=== PATIENT | male | born 1990 | race Caucasian/White ===

== ENCOUNTER 2018-04-27 13:12 | Emergency (ER) | payer BC ==
[2018-04-27 13:34] VITALS: PULSE 80; RESP 18; TEMP 97.4
[2018-04-27] MEDS ORDERED: SODIUM CHLORIDE 0.9% 1,000 ML IV STA ×2 (14:24)
[2018-04-27] MEDS ORDERED: PANTOPRAZOLE 40 MG/10 ML VIAL IVP STA (14:24)
[2018-04-27] MEDS ORDERED: MORPHINE SULFATE 4 MG/ML SYRINGE IV STA (14:24)
[2018-04-27] MEDS ORDERED: SODIUM CHLORIDE 0.9% 500 ML 500 ML IV STA ×2 (14:24→16:16)
[2018-04-27] MEDS ORDERED: IOPAMIDOL-300 CONTRAST 30 ML VIAL (ORAL USE) PO PRN (14:24)
[2018-04-27] MEDS ORDERED: ONDANSETRON 4 MG/2 ML VIAL IVP STA (14:24)
--- NOTE | 2018-04-27 14:50 | ED ---
Abdominal Pain HPI - General Chief Complaint: Abdominal Pain Stated Complaint: Abd.pain Time Seen by Provider: 04/27/18 14:24 Source: patient, RN notes reviewed, old records reviewed Mode of arrival: wheelchair Limitations: no limitations - History of Present Illness Initial Comments: This is a 27-year-old male to the ER for evaluation patient does say for evaluation regards to nausea vomiting abdominal pain. Patient is a postop patient of recent gastric bypass. Patient Brenning of right lower quadrant bowel pain. No fevers, postop history and course is been within normal limits. Patient otherwise has no significant complaints - Related Data Home Medications Medication Instructions Recorded Confirmed Gabapentin [Neurontin] 300 mg PO TID 04/27/18 04/27/18 HYDROcodone/APAP 5-325MG [[place] 1 tab PO Q4HR PRN 04/27/18 04/27/18 5-325] Hyoscyamine Sulfate [Hyoscyamine 0.125 mg SL QID 04/27/18 04/27/18 Sulfate SL] Multivitamin [Multivitamins Adult 1 tab PO DAILY 04/27/18 04/27/18 Gummies] Ondansetron [Zofran ODT] 8 mg PO Q8HR PRN 04/27/18 04/27/18 Pantoprazole [Protonix] 40 mg PO DAILY 04/27/18 04/27/18 Previous Rx's Medication Instructions Recorded Tamsulosin [Flomax] 0.4 mg PO DAILY #7 cap 04/27/18 Allergies Allergy/AdvReac Type Severity Reaction Status Date / Time No Known Allergies Allergy Verified 04/27/18 15:39 Review of Systems ROS Statement: Those systems with pertinent positive or pertinent negative responses have been documented in the HPI. ROS Other: All systems not noted in ROS Statement are negative. Past Medical History Past Medical History: No Reported History History of Any Multi-Drug Resistant Organisms: None Reported Past Surgical History: Bariatric Surgery Past Psychological History: No Psychological Hx Reported Smoking Status: Never smoker Past Alcohol Use History: None Reported Past Drug Use History: None Reported General Exam Limitations: no limitations General appearance: alert, in no apparent distress, obese Head exam: Present: atraumatic, normocephalic, normal inspection Eye exam: Present: normal appearance, PERRL, EOMI. Absent: scleral icterus, conjunctival injection, periorbital swelling ENT exam: Present: normal exam, mucous membranes moist Neck exam: Present: normal inspection. Absent: tenderness, meningismus, lymphadenopathy Respiratory exam: Present: normal lung sounds bilaterally. Absent: respiratory distress, wheezes, rales, rhonchi, stridor Cardiovascular Exam: Present: regular rate, normal rhythm, normal heart sounds. Absent: systolic murmur, diastolic murmur, rubs, gallop, clicks GI/Abdominal exam: Present: soft, tenderness, guarding, normal bowel sounds. Absent: distended, rebound, rigid Extremities exam: Present: normal inspection, full ROM, normal capillary refill. Absent: tenderness, pedal edema, joint swelling, calf tenderness Back exam: Present: normal inspection Neurological exam: Present: alert, oriented X3, CN II-XII intact Psychiatric exam: Present: normal affect, normal mood Skin exam: Present: warm, dry, intact, normal color. Absent: rash Course Vital Signs 04/27/18 04/27/18 13:31 15:00 Temperature 97.4 F L Pulse Rate 80 Respiratory 18 18 Rate Blood Pressure 116/76 149/95 O2 Sat by Pulse 95 99 Oximetry - Reevaluation(s) Reevaluation #1: 04/27/18 14:50 Medical records reviewed Reevaluation #2: 04/27/18 16:[address] findings, no postop issue, incisions are clean dry and intact, patient has current adequate pain control, encouraged to increase oral water intake as best his ability Medical Decision Making - Medical Decision Making 27 male the ER for evaluation of right-sided flank pain positive right-sided kidney stones, no significant nausea vomiting or fevers. Patient can be discharged - Lab Data Result diagrams: 04/27/18 14:30 04/27/18 14:30 Lab Results 04/27/18 04/27/18 04/27/18 Range/Units 14:30 14:30 14:30 WBC 15.1 H (3.8-10.6) k/uL RBC 6.05 H (4.30-5.90) m/uL Hgb 17.3 (13.0-17.5) gm/dL Hct 50.0 (39.0-53.0) % MCV 82.6 (80.0-100.0) fL MCH 28.7 (25.0-35.0) pg MCHC 34.7 (31.0-37.0) g/dL RDW 13.4 (11.5-15.5) % Plt Count 376 (150-450) k/uL Neutrophils % 82 % Lymphocytes % 13 % Monocytes % 3 % Eosinophils % 1 % Basophils % 0 % Neutrophils # 12.4 H (1.3-7.7) k/uL Lymphocytes # 2.0 (1.0-4.8) k/uL Monocytes # 0.5 (0-1.0) k/uL Eosinophils # 0.1 (0-0.7) k/uL Basophils # 0.0 (0-0.2) k/uL Sodium 139 (137-145) mmol/L Potassium 4.0 (3.5-5.1) mmol/L Chloride 102 (98-107) mmol/L Carbon Dioxide 21 L (22-30) mmol/L Anion Gap 16 mmol/L BUN 15 (9-20) mg/dL Creatinine 0.97 (0.66-1.25) mg/dL Est GFR (CKD-EPI)AfAm >90 (>60 ml/min/1.73 sqM) Est GFR (CKD-EPI)NonAf >90 (>60 ml/min/1.73 sqM) Glucose 156 H (74-99) mg/dL Plasma Lactic Acid Zachary 1.5 (0.7-2.0) mmol/L Calcium 10.0 (8.4-10.2) mg/dL Total Bilirubin 1.5 H (0.2-1.3) mg/dL AST 40 (17-59) U/L ALT 99 H (21-72) U/L Alkaline Phosphatase 72 (38-126) U/L Total Protein 8.0 (6.3-8.2) g/dL Albumin 4.9 (3.5-5.0) g/dL Amylase 77 (30-110) U/L Lipase 413 H (23-300) U/L - Radiology Data Radiology results: report reviewed (CT abdomen pelvis is positive for right- sided kidney stone), image reviewed Disposition Clinical Impression: Right ureteral stone, Post-operative pain Disposition: HOME SELF-CARE Condition: Good Instructions: Kidney Stones (ED) Prescriptions: Tamsulosin [Flomax] 0.4 mg PO DAILY #7 cap Is patient prescribed a controlled substance at d/c from ED?: No Referrals: None,Stated [Primary Care Provider] - 1-2 days
[2018-04-27 14:56] LABS: Basophils % (A) 0 %; Eosinophils # (A) 0.1 k/uL (0-0.7); Eosinophils % (A) 1 %; HGB 17.3 gm/dL (13.0-17.5); Lymphocytes % (A) 13 %; MCH 28.7 pg (25.0-35.0); MCHC 34.7 g/dL (31.0-37.0); MCV 82.6 fL (80.0-100.0); Mean Platelet Volume 6.3; Monocytes # (A) 0.5 k/uL (0-1.0); Monocytes % (A) 3 %; Neutrophils # (A) 12.4 k/uL (1.3-7.7); Neutrophils % (A) 82 %; Platelet Count 376 k/uL (150-450); RBC 6.05 m/uL (4.30-5.90); RDW 13.4 % (11.5-15.5); WBC 15.1 k/uL (3.8-10.6)
[2018-04-27 14:59] LABS: ALT 99 U/L (21-72); AST 40 U/L (17-59); Albumin 4.9 g/dL (3.5-5.0); Alkaline Phosphatase 72 U/L (38-126); Amylase 77 U/L (30-110); Anion Gap 16 mmol/L; Blood Urea Nitrogen 15 mg/dL (9-20); Carbon Dioxide 21 mmol/L (22-30); Chloride 102 mmol/L (98-107); Glucose 156 mg/dL (74-99); Lipase 413 U/L (23-300); Sodium 139 mmol/L (137-145); Total Bilirubin 1.5 mg/dL (0.2-1.3)
[2018-04-27 15:28] VITALS: BP 149/95
--- NOTE | 2018-04-27 15:50 | CT ---
EXAMINATION TYPE: CT abdomen pelvis w con DATE OF EXAM: 04/27/2018 COMPARISON: None HISTORY: Right sided pain with nausea and vomiting CT DLP: 2045.3 mGycm Automated exposure control for dose reduction was used. TECHNIQUE: Helical acquisition of images from the lung bases through the pelvis have been completed. CONTRAST: Performed with Oral Contrast and with IV Contrast, patient injected with 100 mL of Isovue 300. FINDINGS: Within the subcutaneous fat along the anterior abdominal wall there is inflammatory change present, correlate for any history of prior surgery and possible scar formation versus cellulitis, di fficult to exclude a small anterior abdominal wall hernia at this level LUNG BASES: No significant abnormality is appreciated. AORTA: No significant abnormality is appreciated. LIVER/GB: Liver shows low attenuation. Gallbladder is unremarkable. PANCREAS: No significant abnormality is seen. SPLEEN: No significant abnormality is seen. ADRENALS: No significant abnormality is seen. KIDNEYS: No significant abnormality is seen. There is a calcification along the mid right ureter joseph uring 3 to 4 mm. Mild right-sided hydronephrosis. REPRODUCTIVE ORGANS: No significant abnormality is seen BOWEL: Postop changes are noted status post gastric sleeve. Nonspecific colonic wall thickening may be due to lack of distention, difficult to exclude a mucosal lesion. The appendix is normal.. FREE AIR: No Free Air visible. ASCITES: None visible. PELVIC ADENOPATHY: None visualized. RETROPERITONEAL ADENOPATHY: No Retroperitoneal Adenopathy visible. URINARY BLADDER: No significant abnormality is seen. OSSEOUS STRUCTURES: No significant abnormality is seen. IMPRESSION: OBSTRUCTIVE MID RIGHT URETERAL CALCULUS. FINDINGS WITHIN THE SUBCUTANEOUS FAT MAY BE DUE TO SCARRING, THERE MAY BE A SMALL ANTERIOR ABDOMINAL WALL HERNIA. POSTOP CHANGES. ADDITIONAL FINDINGS ABOVE.
[2018-04-27] MEDS ORDERED: KETOROLAC 30 MG/ML 1 ML VIAL IVP STA (16:15)
[2018-04-27] MEDS ORDERED: TAMSULOSIN 0.4 MG CAP.ER.24H PO STA (16:15)
[2018-04-27] MEDS ORDERED: HYDROmorphone 1 MG/ML 1 ML SYRINGE IVP STA (16:15)
== END 2018-04-27 17:06 | disposition home or self-care (01) ==
LOC: EC 13:12
DX: N20.2 Calculus of kidney with calculus of ureter (principal); G89.18 Other acute postprocedural pain; R10.31 Right lower quadrant pain; Z98.84 Bariatric surgery status; Z79.899 Other long term (current) drug therapy
CPT/HCPCS: 99285; 96374; 96375 ×4; 96361 ×2; 36415; 80053; 82150; 83605; 83690; 85025; 74177; J2270; J2405; J1885; J1170; C9113; Q9967

== ENCOUNTER 2022-04-12 19:19 | Emergency (ER) | payer BC, OTHER ==
--- NOTE | 2022-04-12 20:09 | XR ---
EXAMINATION TYPE: XR shoulder complete LT DATE OF EXAM: 04/12/2022 COMPARISON: NONE HISTORY: Shoulder pain TECHNIQUE: 3 views FINDINGS: There is no fracture nor dislocation. Glenohumeral joint is intact. No pathologic calcifica tions. Soft tissues appear normal. IMPRESSION: Negative left shoulder exam.
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
[2022-04-12 22:00] VITALS: BP 122/78; PULSE 78; RESP 18; TEMP 98.2
== END 2022-04-12 22:00 | disposition home or self-care (01) ==
LOC: EC 19:19
DX: S40.012A Contusion of left shoulder, initial encounter (principal); V18.4XXA Pedal cycle driver injured in noncollision transport accident in traffic accident, initial encounter; Y93.I9 Activity, other involving external motion
CPT/HCPCS: 99283

== ENCOUNTER 2024-01-28 14:18 | Inpatient (IN) | payer BC, OTHER ==
[2024-01-28] MEDS: KETOROLAC 15 MG/ML 1 ML VIAL IVP STA (14:57)
[2024-01-28] MEDS: SODIUM CHLORIDE 0.9% 1,000 ML IV ONE (14:59)
--- NOTE | 2024-01-28 15:03 | ED ---
Upper Extremity HPI - General Chief Complaint: Extremity Injury, Upper Stated Complaint: arm pain Time Seen by Provider: 01/28/24 14:33 Source: patient, RN notes reviewed Mode of arrival: ambulatory Limitations: no limitations - History of Present Illness Initial Comments: 33-year-old male presents emergency department with chief complaint of right elbow pain. Patient was seen at urgent care and sent here for evaluation. Patient states that he has a area of redness and increased warmth to his right elbow. Patient denies any trauma he states he may have been stung by bee but states the pain is not improving. He states feeling is getting worse. States his arm feels swollen. - Related Data Home Medications Medication Instructions Recorded Confirmed No Known Home Medications 01/28/24 01/28/24 Allergies Allergy/AdvReac Type Severity Reaction Status Date / Time No Known Allergies Allergy Verified 01/28/24 19:33 Review of Systems ROS Statement: Those systems with pertinent positive or pertinent negative responses have been documented in the HPI. ROS Other: All systems not noted in ROS Statement are negative. Past Medical History Past Medical History: No Reported History History of Any Multi-Drug Resistant Organisms: None Reported Past Surgical History: Bariatric Surgery Past Psychological History: No Psychological Hx Reported Smoking Status: Never smoker Past Alcohol Use History: None Reported Past Drug Use History: None Reported General Exam Limitations: no limitations General appearance: alert, in no apparent distress Head exam: Present: atraumatic, normocephalic, normal inspection Eye exam: Present: normal appearance, PERRL, EOMI. Absent: scleral icterus, conjunctival injection, periorbital swelling ENT exam: Present: normal exam, normal oropharynx, mucous membranes moist Neck exam: Present: normal inspection, full ROM. Absent: tenderness, meningismus, lymphadenopathy Respiratory exam: Present: normal lung sounds bilaterally. Absent: respiratory distress, wheezes, rales, rhonchi, stridor Cardiovascular Exam: Present: regular rate, normal rhythm, normal heart sounds. Absent: systolic murmur, diastolic murmur, rubs, gallop, clicks Extremities exam: Present: other (Right elbow there is swelling, increased warmth with palpation, there is a small area of erythema with tenderness to palpation neurovascular intact) Neurological exam: Present: alert Skin exam: Present: warm, dry, intact, normal color. Absent: rash Course Vital Signs 01/28/24 01/28/24 14:21 17:10 Temperature 98.0 F Pulse Rate 73 80 Respiratory 16 18 Rate Blood Pressure 142/88 134/76 O2 Sat by Pulse 97 97 Oximetry Medical Decision Making - Medical Decision Making Was pt. sent in by a medical professional or institution ([facility], [facility], urgent care, hospital, or senior living...) When possible be specific @ -Urgent care Did you speak to anyone other than the patient for history (EMS, parent, family, police, friend...)? What history was obtained from this source @ -No Did you review nursing and triage notes (agree or disagree)? Why? @ -I reviewed and agree with nursing and triage notes Were old charts reviewed (outside hosp., previous admission, EMS record, old EKG, old radiological studies, urgent care reports/EKG's, senior living records)? Report findings @ -No old charts were reviewed Differential Diagnosis (chest pain, altered mental status, abdominal pain women, abdominal pain men, vaginal bleeding, weakness, fever, dyspnea, syncope, headache, dizziness, GI bleed, back pain, seizure, CVA, palpatations, mental health, musculoskeletal)? @ -Tendinitis, bursitis, septic joint, septic arthritis EKG interpreted by me (3pts min.). @ -None X-rays interpreted by me (1pt min.). @ -xray right elbow shows no acute fracture, no fat pad sign's no foreign body CT interpreted by me (1pt min.). @ -None done U/S interpreted by me (1pt. min.). @ -None done What testing was considered but not performed or refused? (CT, X-rays, U/S, labs)? Why? @ -None What meds were considered but not given or refused? Why? @ -None Did you discuss the management of the patient with other professionals (pro fessionals i.e. [facility], [employer], lab, RT, psych nurse, social security benefits interviewer, automatic furnace operator, teacher, technology officer, case reviewer)? Give summary @ -Discussed the case with fely velasquez for Dr. Munoz send orthopedics r ecommends patient be admitted to medicine IV antibiotics and will consult. Case discussed with Dr. Bacon who admits patient Was smoking cessation discussed for >3mins.? @ -No Was critical care preformed (if so, how long)? @ -No Were there social determinants of health that impacted care today? How? (Homelessness, low income, unemployed, alcoholism, drug addiction, transportation, low edu. Level, literacy, decrease access to med. care, longterm, rehab)? @ -No Was there de-escalation of care discussed even if they declined (Discuss DNR or withdrawal of care, Hospice)? DNR status @ -No What co-morbidities impacted this encounter? (DM, HTN, Smoking, COPD, CAD, Cancer, CVA, ARF, Chemo, Hep., AIDS, mental health diagnosis, sleep apnea, morbid obesity)? @ -None Was patient admitted / discharged? Hospital course, mention meds given and route, prescriptions, significant lab abnormalities, going to OR and other pertinent info. @ -Admitted patient presented for right elbow pain, unable to move secondary to pain patient does have some increased erythema, warmth with palpation patient does have mild leukocytosis patient started on Unasyn and vancomycin. Patient is admitted with consults to ID and orthopedics. Undiagnosed new problem with uncertain prognosis? @ -No Drug Therapy requiring intensive monitoring for toxicity (Heparin, Nitro, Insulin, Cardizem)? @ -No Were any procedures done? @ -No Diagnosis/symptom? @ -Septic joint right elbow Acute, or Chronic, or Acute on Chronic? @ -Acute Uncomplicated (without systemic symptoms) or Complicated (systemic symptoms)? @ -Complicated Side effects of treatment? @ -No Exacerbation, Progression, or Severe Exacerbation? @ -No Poses a threat to life or bodily function? How? (Chest pain, USA, MD, pneumonia, PE, COPD, DKA, ARF, appy, cholecystitis, CVA, Diverticulitis, Homicidal, Suicidal, threat to staff... and all critical care pts) @ -Yes surgical risk - Lab Data Result diagrams: 01/28/24 14:42 01/28/24 14:42 Lab Results 01/28/24 01/28/24 Range/Units 14:42 14:42 WBC 12.1 H (3.8-10.6) k/uL RBC 5.37 (4.30-5.90) m/uL Hgb 11.5 L (13.0-17.5) gm/dL Hct 36.9 L (39.0-53.0) % MCV 68.6 L (80.0-100.0) fL MCH 21.5 L (25.0-35.0) pg MCHC 31.3 (31.0-37.0) g/dL RDW 16.1 H (11.5-15.5) % Plt Count 449 (150-450) k/uL MPV 6.4 Neutrophils % 63 % Lymphocytes % 24 % Monocytes % 9 % Eosinophils % 1 % Basophils % 1 % Neutrophils # 7.6 (1.3-7.7) k/uL Lymphocytes # 2.9 (1.0-4.8) k/uL Monocytes # 1.1 H (0-1.0) k/uL Eosinophils # 0.1 (0-0.7) k/uL Basophils # 0.1 (0-0.2) k/uL Hypochromasia Marked Anisocytosis Slight Microcytosis Marked ESR 27 H (0-15) mm/Hr Sodium 140 (137-145) mmol/L Potassium 4.1 (3.5-5.1) mmol/L Chloride 109 H (98-107) mmol/L Carbon Dioxide 23 (22-30) mmol/L Anion Gap 8 mmol/L BUN 12 (9-20) mg/dL Creatinine 0.87 (0.66-1.25) mg/dL Est GFR (CKD-EPI)AfAm >90 (>60 ml/min/1.73 sqM) Est GFR (CKD-EPI)NonAf >90 (>60 ml/min/1.73 sqM) Glucose 93 (74-99) mg/dL Uric Acid 7.5 (3.5-8.5) mg/dL Calcium 9.1 (8.4-10.2) mg/dL Total Bilirubin 0.4 (0.2-1.3) mg/dL AST 27 (17-59) U/L ALT 19 (4-49) U/L Alkaline Phosphatase 66 (38-126) U/L C-Reactive Protein <0.5 (<1.0) mg/dL Total Protein 6.7 (6.3-8.2) g/dL Albumin 4.1 (3.5-5.0) g/dL Disposition Clinical Impression: Septic joint of right elbow Disposition: ADMITTED IP TO THIS [facility] Condition: Fair Time of Disposition: 16:09
[2024-01-28 15:14] LABS: Anisocytosis Slight; Basophils # (A) 0.1 k/uL (0-0.2); Basophils % (A) 1 %; Eosinophils # (A) 0.1 k/uL (0-0.7); Eosinophils % (A) 1 %; HCT 36.9 % (39.0-53.0); HGB 11.5 gm/dL (13.0-17.5); Hypochromasia Marked; Lymphocytes # (A) 2.9 k/uL (1.0-4.8); Lymphocytes % (A) 24 %; MCH 21.5 pg (25.0-35.0); MCHC 31.3 g/dL (31.0-37.0); MCV 68.6 fL (80.0-100.0); Mean Platelet Volume 6.4; Microcytosis Marked; Monocytes # (A) 1.1 k/uL (0-1.0); Monocytes % (A) 9 %; Neutrophils # (A) 7.6 k/uL (1.3-7.7); Neutrophils % (A) 63 %; Platelet Count 449 k/uL (150-450); RBC 5.37 m/uL (4.30-5.90); RDW 16.1 % (11.5-15.5); WBC 12.1 k/uL (3.8-10.6)
--- NOTE | 2024-01-28 15:27 | XR ---
EXAMINATION TYPE: XR elbow complete RT DATE OF EXAM: 01/28/2024 CLINICAL HISTORY: pain TECHNIQUE: Frontal, lateral and oblique images of the right elbow are obtained. COMPARISON: None. FINDINGS: There is no acute fracture/dislocation evident of the elbow. No abnormal fat pad signs ar e seen. The overlying soft tissue appears unremarkable. IMPRESSION: There is no acute fracture or dislocation of the elbow. ICD 10 NO FRACTURE, INITIAL EVALUATION
[2024-01-28 15:32] LABS: ALT 19 U/L (4-49); AST 27 U/L (17-59); African American GFR (CKD) >90 (>60 ml/min/1.73 sqM); Albumin 4.1 g/dL (3.5-5.0); Alkaline Phosphatase 66 U/L (38-126); Anion Gap 8 mmol/L; Blood Urea Nitrogen 12 mg/dL (9-20); C Reactive Protein <0.5 mg/dL (<1.0); Calcium 9.1 mg/dL (8.4-10.2); Carbon Dioxide 23 mmol/L (22-30); Chloride 109 mmol/L (98-107); Glucose 93 mg/dL (74-99); Non-African American GFR(CKD) >90 (>60 ml/min/1.73 sqM); Potassium 4.1 mmol/L (3.5-5.1); Sodium 140 mmol/L (137-145); Total Bilirubin 0.4 mg/dL (0.2-1.3); Total Protein 6.7 g/dL (6.3-8.2); Uric Acid 7.5 mg/dL (3.5-8.5)
[2024-01-28] MEDS ORDERED: VANCOMYCIN IV PER PHARMACY 1 EACH MISC MISCELLANE PRN (16:08)
[2024-01-28] MEDS ORDERED: ACETAMINOPHEN TAB 325 MG TAB PO PRN (16:09)
[2024-01-28] MEDS ORDERED: NALOXONE 0.4 MG/ML 1 ML VIAL IV PRN (16:09)
[2024-01-28] MEDS ORDERED: HYDROmorphone 0.5 MG/0.5 ML SYRINGE IVP PRN (16:09)
[2024-01-28] MEDS: HYDROmorphone 0.5 MG/0.5 ML SYRINGE IVP STA (16:24)
[2024-01-28] MEDS: HYDROcodone/APAP 5-325MG 1 EACH TAB PO PRN (18:04)
[2024-01-28] MEDS: AMPICILLIN-SULBACTAM 3 GM in SODIUM CHLORIDE 0.9% 100 ML IVPB SCH ×2 (18:04→23:13)
[2024-01-28 19:20] LABS: Erythrocyte Sedimentation Rate 27 mm/Hr (0-15)
[2024-01-28] MEDS: LACTATED RINGERS 1,000 ML IV ONE (19:29)
[2024-01-28] MEDS: ONDANSETRON 4 MG/2 ML VIAL IVP STA ×2 (19:48→22:48)
[2024-01-28] MEDS: DEXAMETHASONE SOD PHOSPHATE 4 MG/ML 1 ML VIAL IVP ONE (19:50)
--- NOTE | 2024-01-28 19:50 | P.CNOR ---
History of Present Illness - [facility] Consult date: 01/28/24 Consult reason: joint pain History of present illness: 33 yo male presents with c/o right elbow pain that is severe and has been getting worse over the past day. He states three days ago he was working on a car and after did not have any issues, of note he did scrape himself with a screwdriver on his leg during this, and then the next day his elbow was sore. He states then over the next two days the elbow became more and more painful and severely swollen and now today he cannot move the elbow and it is extremely painful to the touch and with any motion. He presented to the ED for evaluation due to the severe pain and continued issues. He states a low grade fever over the past day. He states no chills. He states no injury to the elbow otherwise or in the past. He denies any other symptoms other than pain that now is radiating down his arm in to his wrist. He states pain over the lateral aspect of the elbow as well as anterior and medial. He has little to no pain over the distal lateral humeral condyle. He has Allodynia over the skin of the lateral elbow over the radial head. He also has severe pain with supination and pronation and refuses to flex or extend the elbow and is holding it in a semiflexed position. He states no sob/cp/n/v. Review of Systems 16 points review of systems completed and as stated in HPI, all other systems reviewed are negative. Constitutional: Reports as per HPI Past Medical History Past Medical History: No Reported History History of Any Multi-Drug Resistant Organisms: None Reported Past Surgical History: Bariatric Surgery Additional Past Surgical History / Comment(s): gastric sleeve 2017 Past Psychological History: No Psychological Hx Reported Smoking Status: Never smoker Past Alcohol Use History: None Reported Past Drug Use History: None Reported Medications and Allergies Home Medications Medication Instructions Recorded Confirmed Type No Known Home Medications 01/28/24 01/28/24 History Allergies Allergy/AdvReac Type Severity Reaction Status Date / Time No Known Allergies Allergy Verified 01/28/24 19:33 Physical Examination Osteopathic Statement: *. No significant issues noted on an osteopathic structural exam other than those noted in the History and Physical/Consult. Physical Exam: -Patient is alert and oriented 3 appears well-nourished well-hydrated is in no acute distress. They do not appear septic. -There is TTP Diffusely about the right elbow. Patient has allodynia he is guarding he refuses to move the elbow secondary to severe pain. -Erythema and warmth about the right elbow over the lateral aspect. -Upper extremities show [5] out of 5 strength in all major muscle groups. Except for right elbow and wrists testing as the patient is guarding cannot tolerate due to exquisite pain -Lower extremities with [5] out of 5 strength in all major muscle groups [##EXCEPT] -There is [FROM] that is [painless] of the b/l UE and LE in all major joints. Except for right elbow which is held in approximately 105 of flexion. The patient refuses to move the elbow secondary to severe pain. -They are intact to light touch sensation in C5 to T1 and L2 to S1 nerve distribution. -DTR [2]/4 all upper and lower extremities -Patient has palpable distal pulses all 4 ext -Compartments are soft and compressible. -Patient shows a negative Nato's [-Neg Hoffmans b/l] [-Neg Clonus b/l] [-Neg babinski b/l] Cranial nerves II through XII are grossly intact. - Elbow right Location of pain: anterior, medial, lateral Pain modifiers: with motion, with activity, at rest Stiffness: unable to fully bend, unable to fully straighten, unable to fully supinate, unable to fully pronate Swelling: of the elbow Appearance: swelling, erythema, warmth Tenderness with palpation: radiocapitellar, ulnotrochlear, ulnar collateral ligament, radial collateral ligament Crepitus with motion: No Strength: flexion: 3/5 Strength: extension: 3/5 Strength: supination: 3/5 Strength: pronation: 3/5 Strength: cleaning technician: 3/5 Tests: tennis elbow tests: negative, golfer's elbow tests: negative, medial ligament instability tests: negative, lateral ligament instability tests: negative, posterolateral ligament instability tests: negative, Tinel's sign median nerve: negative, Tinel's sign ulnar nerve: negative Reflexes: biceps: grade 2, brachioradialis: grade 2, triceps: grade 2 Results Xray multivew of the right elbow is reviewed. This demonstrates swelling about the right elbow with posterior fat pad sign as well as small anterior fat pad sign. There are no fractures noted. UH and RC joints are congruent. No lesions noted. Alignment normal. - Labs Labs: Abnormal Lab Results - Last 24 Hours (Table) 01/28/24 01/28/24 Range/Units 14:42 14:42 WBC 12.1 H (3.8-10.6) k/uL Hgb 11.5 L (13.0-17.5) gm/dL Hct 36.9 L (39.0-53.0) % MCV 68.6 L (80.0-100.0) fL MCH 21.5 L (25.0-35.0) pg RDW 16.1 H (11.5-15.5) % Monocytes # 1.1 H (0-1.0) k/uL ESR 27 H (0-15) mm/Hr Chloride 109 H (98-107) mmol/L H & H 01/28/24 Range/Units 14:42 Hgb 11.5 L (13.0-17.5) gm/dL Hct 36.9 L (39.0-53.0) % Result Diagrams: 01/28/24 14:42 01/28/24 14:42 - Diagnostic results Elbow x-ray: report reviewed, image reviewed Assessment and Plan (1) Right elbow pain Current Visit: Yes Status: Acute Code(s): M25.521 - PAIN IN RIGHT ELBOW SNOMED Code(s): 11573623 (2) Septic joint of right elbow Current Visit: Yes Status: Acute Code(s): M00.9 - PYOGENIC ARTHRITIS, UNSPECIFIED SNOMED Code(s): 323743555 Plan: -NPO -Pts elbow was aspirated in his room under sterile conditions and aspirate sent to lab for analysis. The aspirate obtained was abot 8 cc of purulent synovial fluid with some bloody material as well. -Had a long discussion with patient and family due to clinical presentation, labs, and purulent aspirate I do recommend urgent/emergent washout of this elbow due to high suspicion of septic arthritis of the elbow. They understand and are agreeable to this. We discussed risks and benefits as outlined below. Pt will be taken to the OR tonight for right elbow incision and drainage with cultures. ID is consulted for abx and possible PICC line. Orthopedic Surgery Risk Review Orestes Ramos is a 33 yo male presenting for evaluation of severe right elbow pain swelling, redness and inability to move elbow with no apparent injury. It was my pleasure to have seen and examined Orestes Ramos . In our visit today we have had a chance to go over subjective complaints, physical examination findings and treatments including the natural course history without intervention and various interventional options. His imaging demonstrates no fracture or dislocation of the right elbow with anterior and posterior fat pads. On physical exam, Oerstes Ramos demonstrates pain with motion of right elbow, which is NV intact at this time. I have explained to the patient that this fracture needs stabilization. Based on the patients imaging, physical exam, and the rapid progression and disabling nature of her symptoms, at this time I recommend surgery in the form or a: INCISION AND DRAINAGE OF RIGHT ELBOW JOINT I discussed the risk and benefits of this procedure at length with Orestes Ramos . Questions were invited and answered, and the patient wishes to proceed as outlined below. Currently, I am recommendin. INCISION AND DRAINAGE OF RIGHT ELBOW JOINT 2. Review of surgical risks and benefits as well as an educational packet on the proposed surgical procedure. Risks: All surgical procedures come with inherent risks, including those related to positioning, anesthesia, intraoperative findings, and postoperative complicat ions. It is important to understand that surgery does not come with any guarantee of a successful outcome as complications and adverse events are always possible. The patient was given a handout discussing the surgical procedure and risks associated with the intervention, both of which were discussed with the patient. These risks include but are not limited to the following: - Experiencing same, different or even worse symptoms compared to before surgery. - Requiring further surgery or other forms of treatment presently or at some time in the future . - On an extreme but fortunately relatively rare basis severe complication such as blindness, stroke, heart attack, temporary and/or permanent nerve injury, paralysis, coma, or may occur, sometimes without known explanation. - Surgical complications may include but are not limited to risk of infection, fluid accumulation in the surgical dissection site, including a seroma or hematoma, that requires additional surgery, wound drainage, bleeding, new numbness or weakness, vision changes/loss, spinal fluid leakage, non-healing and/or infected incision, headaches, difficulty or inability to swallow, hoarseness, hemopneumothorax, pneumothorax, injury to nerves, spinal cord, blood vessels, lymphatics or other vital organs (i.e., bowel injury, injury to the great vessels); heterotopic bone formation; complications related to the hardware such as screws, rods, including misplaced hardware, device failure, hardware fracture/breakage, or hardware loosening; retained surgical instrumentations or devices and the need for further surgery. - Medical risks of the planned surgery include but are not limited to generalized Infections to the whole body or local areas outside of the surgical site (sepsis), heart attack, bleeding, anaphylaxis, meningitis, seizure, epilepsy, hearing loss, burn huang, laceration of the head or other areas of the body, bruising, hypersensitivity of the skin, bladder over distension; allergic reaction; shoulder injury related to positioning; fat, blood and air clots to other areas of the body like heart, lungs, brain; failure of internal organs such as lungs, kidneys, liver and excessive bleeding. If blood transfusions are necessary, note that transfusions may cause intolerance reactions such as anaphylaxis or other complex reactions. Despite best efforts, the results of surgery might not heal in terms of bone, soft tissues such as skin, fascia, ligaments, and joints. [facility] has multiple operating rooms with single and overlapping rooms running daily. They currently function under the required guidelines as produced by the Senate Finance Committee with regards to the overlapping rooms and will continue to comply with changes to this policy as they occur. The requirements include and are complied with as follows: (1) the critical portions of the overlapping rooms will not occur at the same time, (2) the attending cleo melendezian will be physically present during the critical portions of the procedure and immediately available during the entire case, and (3) a back-up attending is designated should the primary attending not be immediately available. The patient has had a chance to review all the listed information, has been given print outs detailing this information, and has had all his/her questions answered to their satisfaction. It was my pleasure to have seen and examined Orestes Ramos . In our visit today we have had a chance to go over my understanding of our patient's current condition, the natural course history without intervention and various interventional options. Questions were invited and answered, and the patient wishes to proceed as outlined above. I have seen and examined the patient for 25 minutes and we have spent more than 50% of the time in repeat and detailed counseling about the patient's condition, its natural course history with out and as much as can be predicted with surgery and re-review of various surgical treatment options. In conclusion, Orestes Ramos requested we proceed with the above suggested surgery and are willing to accept risks and limitations of the suggested surgery as nature of the disease process and our best attempts at treatment for the condition. Thank you again for allowing us to be part of your patient's care. Please don't hesitate to contact me if you have any further questions. Signed and authenticated by: Carlos Ma [facility] [address]
[2024-01-28] MEDS ORDERED: LIDOCAINE 1% INJ 10MG/ML (20 ML MDV) ONE (19:58)
[2024-01-28] MEDS ORDERED: MIDAZOLAM 2 MG/2 ML VIAL ONE (19:58)
[2024-01-28] MEDS ORDERED: PROPOFOL 10 MG/ML 20 ML VIAL IV ONE (19:58)
[2024-01-28] MEDS ORDERED: fentaNYL (PF) 50 MCG/ML 2 ML AMP ONE (19:58)
--- NOTE | 2024-01-28 21:13 | P.OP ---
Date of Procedure: 01/28/24 Preoperative Diagnosis: Current Active Problems Right elbow pain (Acute) Septic joint of right elbow (Acute) Postoperative Diagnosis: Current Active Problems Right elbow pain (Acute) Septic joint of right elbow (Acute) Procedure(s) Performed: 1. INCISION AND DRAINAGE OF RIGHT ELBOW SEPTIC ARTHRITIS Implants: NONE Anesthesia: MAC Surgeon: Carlos Juan Estimated Blood Loss (ml): 10 IV fluids (ml): 500 Urine output (ml): 0 Pathology: other (X2 CX RIGHT ELBOW FLUID, RIGHT ELBOW TISSUE) Condition: stable Disposition: PACU Indications for Procedure: Orestes Ramos is a 33 yo male presenting for evaluation of severe right elbow pain swelling, redness and inability to move elbow with no apparent injury. It was my pleasure to have seen and examined Orestes Ramos . In our visit today we have had a chance to go over subjective complaints, physical examination findings and treatments including the natural course history without intervention and various interventional options. His imaging demonstrates no fracture or dislocation of the right elbow with anterior and posterior fat pads. On physical exam, Orestes Ramos demonstrates pain with motion of right elbow, which is NV intact at this time. I have explained to the patient that this fracture needs stabilization. Based on the patients imaging, physical exam, and the rapid progression and disabling nature of her symptoms, at this time I recommend surgery in the form or a: INCISION AND DRAINAGE OF RIGHT ELBOW JOINT I discussed the risk and benefits of this procedure at length with Orestes Ramos . Questions were invited and answered, and the patient wishes to proceed as outlined below. Currently, I am recommendin. EMERGENT INCISION AND DRAINAGE OF RIGHT ELBOW JOINT Description of Procedure: The patient was seen and examined in the preoperative area. All preoperative protocols were followed. Informed consent was obtained risks and benefits of the procedure were discussed at length. Risks including bleeding infection damage to the surrounding tissue and risk of reoperation were discussed with the patient. Risk of anesthesia up to and including was a discussed with the patient. These are outlined in the risk reviewed. They were willing to accept these risks and all of the risks of surgery. The patient was gIVEN A DOSE OF VANCOMYCIN FROM THE FLOOR FROM THE EMERGENCY DEPARTMENT. The patient was seen and evaluated by the anesthesia team who deemed them fit for surgery. The site was marked, the patient was willing to proceed with the procedure. The patient was transferred to the operative suite by the Department of anesthesia. There were then drifted off to sleep by the department of anesthesia and LMA anesthesia was used. Once adequate anesthesia had been obtained the patient was carefully transferred to the operative bed. All bony prominences were padded accordingly. SCDs were placed on the nonoperative lower extremities. Arms were well padded. Right arm was exposed placed on a arm board well-padded. Preoperative briefing was done with the operative team and everyone was ready for the procedure to start. The patients Right arm was then prepped and draped in the normal sterile fashion. Timeout was then performed and all parties in agreement with the procedure to be performed. Lateral [place] approach incision was then marked on the patient's right elbow and skin incision was made with a 15 blade and blunt dissection taken down to the muscular fascia which was split ECRB ECRL And anconeus were identified. The patient's arm was kept in pronation throughout dissection to protect his nerve. These were then elevated. The joint capsule was then identified and cleaned. Joint capsule was then incised with inside knife and immediate gross purulence was noted. Cultures were taken of this fluid. There is also phlegmon noted and this was sent for culture and pathology. We then irrigated the joint out with NSS, IRRICEPT, Betadine and then finally NSS while taking the joint through a range of motion during irrigation to allow for complete irrigation of the joint. Once this was completed the joint was taken through a range of motion and no further purulence was noted or expressed. The joint capsule was then closed with 30 and 2-0 Vicryl. The fascia deep was then closed with 3-0 Vicryl. Superficial subcu was closed with 3-0 Vicryl and the skin was closed with 3-0 nylon in a horizontal mattress fashion. This approximated very well. The wound was then cleaned and dressed sterilely with Adaptic 4 x 4's and Kerlix this was then overwrapped with an Mundo wrap. The patient was then transferred back to their hospital bed. There were awakened by department of anesthesia having tolerated the procedure very well with no complications. The patient was then transported to the postoperative care unit in stable condition.
--- NOTE | 2024-01-28 22:37 | P.CONS ---
History of Present Illness - Reason for Consult Consult date: 01/28/24 Septic joint Requesting physician: John Dejesus - Chief Complaint Right elbow pain and swelling x 3 days - History of Present Illness Patient is a 33-year-old male with no significant past medical history did have a history of bariatric surgery in 2017 patient mention has been working on all core over the last few days and subsequently noticed to having increasing pain and swelling to the right elbow area started as a discomfort for the last 2 days that has progressively getting worse becoming more swollen and has very hard for him to lift up his arm patient subsequent noticed to have some redness and warmth to the area that has concerned him for the patient went to the local urgent care for med patient was directed to the ER patient denies high-grade fever did have some chills has been complaining of pain to the right elbow area describing it to be sharp almost 10 out of 10 in severity without any radiation worse with movement of the arm and elbow area patient did not have any open wound or any drainage with the symptoms the patient has been evaluated on presentation to the hospital the patient was afebrile no fever have recorded subsequently patient was nontachycardic hypotensive or hypoxic he did have a white count of 12.1 with a left shift kidney function normal electrolytes normal liver enzymes normal patient did have a elbow x-ray no acute fracture or dislocation patient was started on vancomycin and Unasyn infectious disease was consulted for further management of antibiotic therapy Review of Systems Positive point and negatives has been mentioned in the HPI, complete review of systems was performed and all other systems are negative Past Medical History Past Medical History: No Reported History History of Any Multi-Drug Resistant Organisms: None Reported Past Surgical History: Bariatric Surgery Past Psychological History: No Psychological Hx Reported Smoking Status: Never smoker Past Alcohol Use History: None Reported Past Drug Use History: None Reported Medications and Allergies Home Medications Medication Instructions Recorded Confirmed Type No Known Home Medications 01/28/24 01/28/24 History Allergies Allergy/AdvReac Type Severity Reaction Status Date / Time No Known Allergies Allergy Verified 01/28/24 19:33 Physical Exam Vitals: Vital Signs Temp Pulse Resp BP Pulse Ox 01/28/24 14:21 98.0 F 73 16 142/88 97 Intake and Output 01/28/24 01/28/24 01/28/24 06:59 14:59 22:59 Other: Weight 115.666 kg GENERAL DESCRIPTION: Middle-aged male lying in bed, no distress. No tachypnea or accessory muscle of respiration use. HEENT: Shows Pallor , no scleral icterus. Oral mucous membrane is dry. No pharyngeal erythema or thrush NECK: Trachea central, no thyromegaly. LUNGS: Unlabored breathing. Clear to auscultation anteriorly. No wheeze or crackle. HEART: S1, S2, regular rate and rhythm. No loud murmur ABDOMEN: Soft, no tenderness , guarding or rigidity, no organomegaly EXTREMITIES: Right ankle did have significant swelling, redness tenderness and warmth SKIN: No rash, no masses palpable. NEUROLOGICAL: The patient is awake, alert, oriented x3, mood and affect normal. Results CBC & Chem 7: 01/28/24 14:42 01/28/24 14:42 Labs: Abnormal Lab Results - Last 24 Hours (Table) 01/28/24 01/28/24 Range/Units 14:42 14:42 WBC 12.1 H (3.8-10.6) k/uL Hgb 11.5 L (13.0-17.5) gm/dL Hct 36.9 L (39.0-53.0) % MCV 68.6 L (80.0-100.0) fL MCH 21.5 L (25.0-35.0) pg RDW 16.1 H (11.5-15.5) % Monocytes # 1.1 H (0-1.0) k/uL Chloride 109 H (98-107) mmol/L Assessment and Plan (1) Olecranon bursitis, right elbow Current Visit: Yes Status: Acute Code(s): M70.21 - OLECRANON BURSITIS, RIGHT ELBOW SNOMED Code(s): 434379392053263 (2) Leukocytosis Current Visit: Yes Status: Acute Code(s): D72.829 - ELEVATED WHITE BLOOD CELL COUNT, UNSPECIFIED SNOMED Code(s): 362251143 Plan: 1patient presented to hospital with extensive right elbow as well as upper extremity swelling pain and tenderness concerning for likely septic olecranon bursitis with secondary cellulitis of the upper extremity likely from gram- positive skin annmarie gram-negative infection less likely bilateral 2-await Ortho evaluation for possible I&D and deep culture 3-vancomycin pharmacy to dose target trough of 15 while watching kidney function and Vanco trough closely and adjust the dose of Unasyn to 3 g every 6 hours pending culture Question concern answered We will follow on clinical condition and cultures to further adjust medication if needed Thank you for this consultation we will follow the patient along with you Dictation was produced using [employer] dictation software. please excuse any grammatical, word or spelling errors. Time with Patient: Greater than 30
[2024-01-28] MEDS: VANCOMYCIN 1,750 MG in SODIUM CHLORIDE 0.9% 500 ML 500 ML IVPB SCH (22:46)
[2024-01-28] MEDS: DEXAMETHASONE SOD PHOSPHATE 4 MG/ML 1 ML VIAL IM STA (22:48)
[2024-01-28] MEDS: DEXAMETHASONE SOD PHOSPHATE 4 MG/ML 1 ML VIAL IVP STA (22:48)
[2024-01-29] MEDS: KETOROLAC 15 MG/ML 1 ML VIAL IVP PRN (01:53)
[2024-01-29 05:23] LABS: African American GFR (CKD) >90 (>60 ml/min/1.73 sqM); Non-African American GFR(CKD) >90 (>60 ml/min/1.73 sqM)
[2024-01-29 08:37] LABS: Anion Gap 7 mmol/L; Blood Urea Nitrogen 10 mg/dL (9-20); Carbon Dioxide 21 mmol/L (22-30); Chloride 109 mmol/L (98-107); Glucose 138 mg/dL (74-99); Potassium 4.7 mmol/L (3.5-5.1); Sodium 137 mmol/L (137-145)
[2024-01-29 09:08] LABS: Anisocytosis Slight; Basophils % (A) 0 %; Eosinophils % (A) 0 %; HCT 36.5 % (39.0-53.0); HGB 11.1 gm/dL (13.0-17.5); Hypochromasia Marked; Lymphocytes # (A) 1.2 k/uL (1.0-4.8); Lymphocytes % (A) 10 %; MCH 21.4 pg (25.0-35.0); MCHC 30.5 g/dL (31.0-37.0); MCV 70.3 fL (80.0-100.0); Mean Platelet Volume 6.9; Microcytosis Moderate; Monocytes # (A) 0.4 k/uL (0-1.0); Monocytes % (A) 3 %; Neutrophils # (A) 10.3 k/uL (1.3-7.7); Neutrophils % (A) 86 %; Platelet Count 435 k/uL (150-450); RBC 5.19 m/uL (4.30-5.90); RDW 16.1 % (11.5-15.5)
--- NOTE | 2024-01-29 10:56 | P.PN ---
Subjective Progress Note Date: 01/29/24 Principal diagnosis: Right elbow pain Septic joint of right elbow Patient seen and examined this morning. Patient is resting comfortably in bed with right elbow elevated on pillows. Surgical incision to right elbow, dressing is CDI. He does report that his pain is managed on current regimen. He states he does have increased pain with movement, although he reports improvement of pain since the procedure. Patient may begin range of motion exercises as tolerated. Continue on current IV antibiotic treatment, awaiting cultures and ID recommendations. Overall, patient states he is feeling better. He has been afebrile, denies any chills, nausea/vomiting, or shortness of breath. Objective - Vital Signs Vital signs: Vital Signs Temp 98.0 F 01/29/24 02:33 Pulse 94 01/29/24 02:49 Resp 16 01/29/24 02:33 BP 124/79 01/29/24 02:49 Pulse Ox 98 01/29/24 02:49 FiO2 Intake & Output 01/28/24 01/29/24 01/29/24 18:59 06:59 18:59 Intake Total 550 Output Total 5 Balance 545 Weight 115.666 kg Intake: IV 550 Output: Estimated Blood Loss 5 Other: # Voids 1 - Exam Inspection: Surgical incision to the right elbow, dressing is CDI. Sensation: Sensation is equal, symmetric, bilaterally intact throughout the upper and lower extremities Palpation: Tender to palpation over the right elbow around incision site. Range of motion: Patient does have limited range of motion to the right elbow due to pain and stiffness from surgical procedure. Patient is able to flex and extend his right wrist and fingers. Motor: 5/5 in all major motor groups in the left upper and lower extremities, 4- /5 right upper extremity. Neurovascular: Radial pulse intact, 2+ bilaterally. Cap refill under 3 seconds in digits upper extremities. - Labs CBC & Chem 7: 01/29/24 04:28 01/29/24 04:25 Labs: Abnormal Lab Results - Last 24 Hours (Table) 01/28/24 01/28/24 Range/Units 14:42 14:42 WBC 12.1 H (3.8-10.6) k/uL Hgb 11.5 L (13.0-17.5) gm/dL Hct 36.9 L (39.0-53.0) % MCV 68.6 L (80.0-100.0) fL MCH 21.5 L (25.0-35.0) pg RDW 16.1 H (11.5-15.5) % Monocytes # 1.1 H (0-1.0) k/uL ESR 27 H (0-15) mm/Hr Chloride 109 H (98-107) mmol/L Assessment and Plan Assessment: Post-Op day 1: Incision and drainage of right elbow Plan: -Appreciate showroom consultant and team management. -Activity: Keep elbow elevated on pillows, may perform ROM exercises as tolerated -Pain control: Adequate at this time, [place] and Toradol -Meds: reviewed -GI ppx: senna -DVT PPX: Heparin -Hygiene: Maintain dressing clean and dry. -Encourage IS 10x/hr -Dispo: Clinically pending *I reviewed and discussed this case with my attending Dr. Juan, whom has reviewed this chart and films and is in agreement with assessment and plan of care as outlined above. I have personally seen and examined the patient, performed the documentation and the assessment and plan as written. Number of minutes spent on the visit: 20m.
--- NOTE | 2024-01-29 16:04 | P.PN ---
Subjective Progress Note Date: 01/29/24 Principal diagnosis: Reason for follow up his right elbow septic arthritis Patient is a 33-year-old male with no significant past medical history did have a history of bariatric surgery in 2017 patient presenting to the hospital with extensive right elbow and arm swelling with concern for olecranon bursitis in this patient who status post incision and drainage of the right elbow septic arthritis by Ortho on 01/28/2024. On today's evaluation that is 01/29/2024, patient did have a low-grade fever 100.7 last night however the patient has been afebrile this morning, patient is breathing comfortably and is currently on room air, patient denies having any significant cough no chest pain shortness of breath, patient denies nausea vomiting or diarrhea and no abdominal pain, pain to right elbow is currently controlled Patient white count is 12.0, creatinine 0.68 cultures currently pending Objective - Vital Signs Vital signs: Vital Signs Temp 98.4 F 01/29/24 07:58 Pulse 77 01/29/24 07:58 Resp 16 01/29/24 07:58 BP 122/80 01/29/24 07:58 Pulse Ox 96 01/29/24 07:58 FiO2 Intake & Output 01/28/24 01/29/24 01/29/24 18:59 06:59 18:59 Intake Total 550 Output Total 5 Balance 545 Weight 115.666 kg Intake: IV 550 Output: Estimated Blood Loss 5 Other: Voiding Method Toilet # Voids 1 - Exam GENERAL DESCRIPTION: Middle-age male lying in bed in no distress RESPIRATORY SYSTEM: Unlabored breathing , decreased breath sounds at bases HEART: S1 S2 regular rate and rhythm , ABDOMEN: Soft , no tenderness EXTREMITIES: Right elbow is currently dressed - Labs CBC & Chem 7: 01/29/24 04:28 01/29/24 04:25 Labs: Abnormal Lab Results - Last 24 Hours (Table) 01/28/24 01/28/24 01/29/24 Range/Units 14:42 14:42 04:25 WBC 12.1 H (3.8-10.6) k/uL Hgb 11.5 L (13.0-17.5) gm/dL Hct 36.9 L (39.0-53.0) % MCV 68.6 L (80.0-100.0) fL MCH 21.5 L (25.0-35.0) pg MCHC (31.0-37.0) g/dL RDW 16.1 H (11.5-15.5) % Neutrophils # (1.3-7.7) k/uL Monocytes # 1.1 H (0-1.0) k/uL ESR 27 H (0-15) mm/Hr Chloride 109 H 109 H (98-107) mmol/L Carbon Dioxide 21 L (22-30) mmol/L Glucose 138 H (74-99) mg/dL 01/29/24 Range/Units 04:28 WBC 12.0 H (3.8-10.6) k/uL Hgb 11.1 L (13.0-17.5) gm/dL Hct 36.5 L (39.0-53.0) % MCV 70.3 L (80.0-100.0) fL MCH 21.4 L (25.0-35.0) pg MCHC 30.5 L (31.0-37.0) g/dL RDW 16.1 H (11.5-15.5) % Neutrophils # 10.3 H (1.3-7.7) k/uL Monocytes # (0-1.0) k/uL ESR (0-15) mm/Hr Chloride (98-107) mmol/L Carbon Dioxide (22-30) mmol/L Glucose (74-99) mg/dL Assessment and Plan (1) Olecranon bursitis, right elbow Current Visit: Yes Status: Acute Code(s): M70.21 - OLECRANON BURSITIS, RIGHT ELBOW SNOMED Code(s): 802452016761470 (2) Leukocytosis Current Visit: Yes Status: Acute Code(s): D72.829 - ELEVATED WHITE BLOOD CELL COUNT, UNSPECIFIED SNOMED Code(s): 809552495 Plan: 1patient presented to hospital with extensive right elbow as well as upper extremity swelling pain and tenderness concerning for likely septic olecranon bursitis with secondary cellulitis of the upper extremity likely from gram- positive skin annmarie gram-negative infection less likely but not entirely excluded 2-patient is s/p Ortho evaluation and did have I&D of the right elbow joint 3-patient to continue with vancomycin pharmacy to dose along with Unasyn to 3 g every 6 hours pending culture Will likely need a PICC line and outpatient IV antibiotics Dictation was produced using [employer] dictation software. please excuse any grammatical, word or spelling errors. Time with Patient: Less than 30
[2024-01-29] MEDS: SENNOSIDES-DOCUSATE SODIUM 1 EACH TAB PO SCH (20:26)
[2024-01-29] MEDS: HEPARIN SODIUM,PORCINE 5,000 UNIT/ML 1 ML VIAL SQ SCH (20:27)
[2024-01-30 08:56] LABS: African American GFR (CKD) >90 (>60 ml/min/1.73 sqM); Non-African American GFR(CKD) >90 (>60 ml/min/1.73 sqM)
[2024-01-30] MEDS: VANCOMYCIN TROUGH DUE 1 EACH MISC MISCELLANE ONE (10:01)
--- NOTE | 2024-01-30 10:12 | P.HPIM ---
History of Present Illness H&P Date: 01/29/24 Chief Complaint: elbow pain Orestes Ramos is a 33 yo M with no significant PMH who presented to the ED with worsening R elbow pain over the past day. He feels this came on gradually after he was working on a car putting his weight on his elbows on the ground. He states then over the next two days the elbow became more painful to the point it hurt to move and was tender to touch. Pt states a low grade fever over the past day. He denies previous trauma to the elbow. He denies any other symptoms other than pain that now is radiating down his arm in to his wrist. He describes pain throughout the elbow and radiating into the wrist. On presentation WBC 12.1, afebrile. Review of Systems All systems: negative Constitutional: Denies chills, Denies fever Eyes: denies blurred vision, denies pain Ears, nose, mouth and throat: Denies headache, Denies sore throat Cardiovascular: Denies chest pain, Denies shortness of breath Respiratory: Denies cough Gastrointestinal: Denies abdominal pain, Denies diarrhea, Denies nausea, Denies vomiting Musculoskeletal: Reports as per HPI, Reports arm numbness/tingling, Denies myalgias Integumentary: Denies pruritus, Denies rash Neurological: Denies numbness, Denies weakness Psychiatric: Denies anxiety, Denies depression Endocrine: Denies fatigue, Denies weight change Past Medical History Past Medical History: No Reported History History of Any Multi-Drug Resistant Organisms: None Reported Past Surgical History: Bariatric Surgery Additional Past Surgical History / Comment(s): gastric sleeve 2017 Past Psychological History: No Psychological Hx Reported Smoking Status: Never smoker Past Alcohol Use History: None Reported Past Drug Use History: None Reported Medications and Allergies Home Medications Medication Instructions Recorded Confirmed Type No Known Home Medications 01/28/24 01/28/24 History Allergies Allergy/AdvReac Type Severity Reaction Status Date / Time No Known Allergies Allergy Verified 01/28/24 19:33 Physical Exam Vitals: Vital Signs Temp Pulse Resp BP Pulse Ox 01/30/24 07:00 98.5 F 70 16 129/83 98 01/30/24 01:56 98.7 F 71 16 133/89 95 01/29/24 19:57 98.8 F 78 16 147/89 95 01/29/24 14:21 98.4 F 77 16 131/79 96 Intake and Output 01/29/24 01/30/24 01/30/24 22:59 06:59 14:59 Other: # Voids 1 Gen: well developed, well nourished NAD HEENT: NC/AT, mmm Neck: supple, no JVD or thyromegaly CV: RRR, no murmur Lungs; CTAB Abd: soft, nontender, non distended Neuro: AAOx3, no focal deficit Skin: R elbow wrapped in gauze Results CBC & Chem 7: 01/29/24 04:28 01/30/24 07:54 Labs: Microbiology - Last 24 Hours (Table) 01/28/24 16:37 Blood Culture - Preliminary Blood 01/28/24 16:37 Blood Culture - Preliminary Blood Assessment and Plan Plan: Septic arthritis of R elbow. Admit, blood cultures, start unasyn and vancomycin. Ortho consulted and pt s/p washout. ID consultation
--- NOTE | 2024-01-30 13:12 | P.PN ---
Subjective Progress Note Date: 01/30/24 Principal diagnosis: Right elbow pain Septic joint of right elbow Patient seen and examined this morning. Patient is resting comfortably in bed with right elbow elevated on pillows. Surgical incision to right elbow, dressing is CDI. He does report that his pain is managed on current regimen. He states he has been attempting to flex and extend his elbow as tolerated. Overall, patient states he is feeling even better than yesterday. He has been afebrile, denies any chills, nausea/vomiting, or shortness of breath. Objective - Vital Signs Vital signs: Vital Signs Temp 98.5 F 01/30/24 07:00 Pulse 70 01/30/24 07:00 Resp 16 01/30/24 07:00 BP 129/83 01/30/24 07:00 Pulse Ox 98 01/30/24 07:00 FiO2 Intake & Output 01/29/24 01/30/24 01/30/24 18:59 06:59 18:59 Intake Total 0 Balance 0 Intake: Oral 0 Other: Voiding Method Toilet # Voids 1 1 - Exam Inspection: Surgical incision to the right elbow, dressing is CDI. Sensation: Sensation is equal, symmetric, bilaterally intact throughout the upper and lower extremities Palpation: Tender to palpation over the right elbow around incision site. Range of motion: Patient does have limited range of motion to the right elbow due to pain and stiffness from surgical procedure. Patient is able to flex and extend his right wrist and fingers. Motor: 5/5 in all major motor groups in the left upper and lower extremities, 4- /5 right upper extremity. Neurovascular: Radial pulse intact, 2+ bilaterally. Cap refill under 3 seconds in digits upper extremities. - Labs CBC & Chem 7: 01/29/24 04:28 01/30/24 07:54 Labs: Microbiology - Last 24 Hours (Table) 01/28/24 16:37 Blood Culture - Preliminary Blood 01/28/24 16:37 Blood Culture - Preliminary Blood Assessment and Plan Assessment: Post-Op day 2: Incision and drainage of right elbow Plan: -Appreciate medical cost consultant and team management. -Continue with IV abx therapy per ID recommendations, awaiting cultures -Activity: Keep elbow elevated on pillows, may perform ROM exercises as tolerated -Pain control: Adequate at this time, [place] and Toradol -Meds: reviewed -GI ppx: senna -DVT PPX: Heparin -Hygiene: Maintain dressing clean and dry. -Encourage IS 10x/hr -Dispo: Clinically pending *I reviewed and discussed this case with my attending Dr. Juan, whom has reviewed this chart and films and is in agreement with assessment and plan of care as outlined above. I have personally seen and examined the patient, performed the documentation and the assessment and plan as written. Number of minutes spent on the visit: 20m.
--- NOTE | 2024-01-30 13:52 | P.PN ---
Subjective Progress Note Date: 01/30/24 Principal diagnosis: Reason for follow up his right elbow septic arthritis Patient is a 33-year-old male with no significant past medical history did have a history of bariatric surgery in 2017 patient presenting to the hospital with extensive right elbow and arm swelling with concern for olecranon bursitis in this patient who status post incision and drainage of the right elbow septic arthritis by Ortho on 01/28/2024. On today's evaluation that is 01/30/2024, Patient is afebrile this morning patient denies having any chest pain shortness of breath or cough, the patient is breathing comfortably and currently on room air, patient denies any abdominal pain no diarrhea no nausea no vomiting patient pain to the right elbow is slightly decreased in intensity. Patient did have a creatinine 0.6 Vanco trough is 16 cultures currently pending Objective - Vital Signs Vital signs: Vital Signs Temp 98.5 F 01/30/24 07:00 Pulse 70 01/30/24 07:00 Resp 16 01/30/24 07:00 BP 129/83 01/30/24 07:00 Pulse Ox 98 01/30/24 07:00 FiO2 Intake & Output 01/29/24 01/30/24 01/30/24 18:59 06:59 18:59 Intake Total 0 Balance 0 Intake: Oral 0 Other: Voiding Method Toilet # Voids 1 1 - Exam GENERAL DESCRIPTION: Middle-age male lying in bed in no distress RESPIRATORY SYSTEM: Unlabored breathing , decreased breath sounds at bases HEART: S1 S2 regular rate and rhythm , ABDOMEN: Soft , no tenderness EXTREMITIES: Right elbow is currently dressed - Labs CBC & Chem 7: 01/29/24 04:28 01/30/24 07:54 Labs: Microbiology - Last 24 Hours (Table) 01/28/24 16:37 Blood Culture - Preliminary Blood 01/28/24 16:37 Blood Culture - Preliminary Blood Assessment and Plan (1) Olecranon bursitis, right elbow Current Visit: Yes Status: Acute Code(s): M70.21 - OLECRANON BURSITIS, RIGHT ELBOW SNOMED Code(s): 797355346612168 (2) Leukocytosis Current Visit: Yes Status: Acute Code(s): D72.829 - ELEVATED WHITE BLOOD CELL COUNT, UNSPECIFIED SNOMED Code(s): 140255345 Plan: 1patient presented to hospital with extensive right elbow as well as upper extremity swelling pain and tenderness concerning for likely septic olecranon bursitis with secondary cellulitis of the upper extremity likely from gram- positive skin annmarie gram-negative infection less likely but not entirely excluded 2-patient is s/p Ortho evaluation and did have I&D of the right elbow joint with cultures currently pending 3-patient to continue with vancomycin pharmacy to dose along with Unasyn to 3 g every 6 hours while waiting for the culture to finalize Question concern answered Dictation was produced using [employer] dictation software. please excuse any grammatical, word or spelling errors. Time with Patient: Less than 30
--- NOTE | 2024-01-30 15:26 | P.PN ---
Subjective Progress Note Date: 01/30/24 Interval History: Patient was seen and examined today. Denied any chills overnight. Right elbow pain is controlled. Remained afebrile. Vital stable. REVIEW OF SYSTEMS: CONSTITUTIONAL: No fever, no malaise,. CARDIOVASCULAR: No chest pain, no palpitations, no syncope. PULMONARY: No shortness of breath, no cough, GASTROINTESTINAL: No diarrhea, no nausea, no vomiting, no abdominal pain. NEUROLOGICAL: No headaches, no weakness, PHYSICAL EXAMINATION: GENERAL: The patient is alert and oriented x3, not in any acute distress. Well developed, well nourished. HEENT: Pupils are round and equally reacting to light. EOMI. No scleral icterus. No conjunctival pallor. Normocephalic, atraumatic. No pharyngeal erythema. No thyromegaly. CARDIOVASCULAR: S1 and S2 present. No murmurs, rubs, or gallops. PULMONARY: Chest is clear to auscultation, no wheezing or crackles. ABDOMEN: Soft, nontender, nondistended, normoactive bowel sounds. No palpable organomegaly. MUSCULOSKELETAL: No joint swelling or deformity. Right elbow dressing intact. Peripheral pulses intact, no cyanosis. No tightness or tenderness forearm or upper arm. EXTREMITIES: No cyanosis, clubbing, or pedal edema. NEUROLOGICAL: Gross neurological examination did not reveal any focal deficits. SKIN: No rashes. Assessment and plan Right elbow olecranon bursitis: Leukocytosis: Presented with extensive right elbow and upper extremity swelling pain and tenderness, concerning for septic olecranon bursitis with secondary cellulitis. Status post orthopedic evaluation and I&D of right elbow jointsurgical cultures pending. Blood cultures negative so far. Infectious disease on boardcurrently on vancomycin and Unasyn Pain control. DVT prophylaxis: Subcutaneous heparin. Dictation was produced using [employer] software. please excuse any grammatical, word or spelling errors. Objective - Vital Signs Vital signs: Vital Signs Temp 97.6 F 01/30/24 15:00 Pulse 64 01/30/24 15:00 Resp 17 01/30/24 15:00 BP 114/74 01/30/24 15:00 Pulse Ox 97 01/30/24 15:00 FiO2 Intake & Output 01/29/24 01/30/24 01/30/24 18:59 06:59 18:59 Intake Total 0 118 Balance 0 118 Intake: Oral 0 118 Other: Voiding Method Toilet # Voids 1 1 - Labs CBC & Chem 7: 01/29/24 04:28 01/30/24 07:54 Labs: Microbiology - Last 24 Hours (Table) 01/28/24 16:37 Blood Culture - Preliminary Blood 01/28/24 16:37 Blood Culture - Preliminary Blood
[2024-01-31 03:43] LABS: Anisocytosis Slight; Basophils # (A) 0.1 k/uL (0-0.2); Basophils % (A) 1 %; Eosinophils # (A) 0.2 k/uL (0-0.7); Eosinophils % (A) 2 %; HCT 34.8 % (39.0-53.0); HGB 10.9 gm/dL (13.0-17.5); Hypochromasia Marked; Lymphocytes # (A) 2.8 k/uL (1.0-4.8); Lymphocytes % (A) 31 %; MCH 21.5 pg (25.0-35.0); MCHC 31.4 g/dL (31.0-37.0); MCV 68.6 fL (80.0-100.0); Mean Platelet Volume 6.4; Microcytosis Marked; Monocytes # (A) 0.7 k/uL (0-1.0); Monocytes % (A) 7 %; Neutrophils # (A) 5.1 k/uL (1.3-7.7); Neutrophils % (A) 56 %; Platelet Count 378 k/uL (150-450); RBC 5.07 m/uL (4.30-5.90); RDW 16.5 % (11.5-15.5)
[2024-01-31 03:54] LABS: African American GFR (CKD) >90 (>60 ml/min/1.73 sqM); Non-African American GFR(CKD) >90 (>60 ml/min/1.73 sqM)
[2024-01-31 03:59] LABS: African American GFR (CKD) >90 (>60 ml/min/1.73 sqM); Anion Gap 7 mmol/L; Blood Urea Nitrogen 9 mg/dL (9-20); C Reactive Protein <0.5 mg/dL (<1.0); Calcium 8.7 mg/dL (8.4-10.2); Carbon Dioxide 23 mmol/L (22-30); Chloride 109 mmol/L (98-107); Glucose 88 mg/dL (74-99); Non-African American GFR(CKD) >90 (>60 ml/min/1.73 sqM); Potassium 3.5 mmol/L (3.5-5.1); Sodium 139 mmol/L (137-145)
--- NOTE | 2024-01-31 08:28 | P.PN ---
Progress Note - Text Progress Note Date: 01/31/24 Current Active Problems Septic joint of right elbow (Acute) Right elbow pain (Acute) Leukocytosis (Acute) Chart reviewed. ID and Med notes reviewed. Appreciate mgt. Ortho eval pending today. Labs and micro reviewed - awaiting surgical cultures still. Awaiting final synoval cultures. VSS Vital Signs - 24 hr 01/30/24 01/30/24 01/31/24 15:00 20:11 01:23 Temperature 97.6 F 98.3 F 97.6 F Pulse Rate [ 64 60 61 Pulse Oximetery ] Respiratory 17 17 16 Rate Blood Pressure 114/74 140/85 132/77 [Left Arm] Blood Pressure [Right Arm] O2 Sat by Pulse 97 96 97 Oximetry 01/31/24 08:00 Temperature 97.4 F L Pulse Rate [ 58 L Pulse Oximetery ] Respiratory 16 Rate Blood Pressure [Left Arm] Blood Pressure 142/78 [Right Arm] O2 Sat by Pulse 95 Oximetry Laboratory Results - Last 24 Hours 01/30/24 01/30/24 01/31/24 07:54 07:54 02:58 WBC 9.0 RBC 5.07 Hgb 10.9 L Hct 34.8 L MCV 68.6 L MCH 21.5 L MCHC 31.4 RDW 16.5 H Plt Count 378 MPV 6.4 Neutrophils % 56 Lymphocytes % 31 Monocytes % 7 Eosinophils % 2 Basophils % 1 Neutrophils # 5.1 Lymphocytes # 2.8 Monocytes # 0.7 Eosinophils # 0.2 Basophils # 0.1 Hypochromasia Marked Anisocytosis Slight Microcytosis Marked Sodium Potassium Chloride Carbon Dioxide Anion Gap BUN Creatinine 0.66 Est GFR (CKD-EPI)AfAm >90 Est GFR (CKD-EPI)NonAf >90 Glucose Calcium C-Reactive Protein Vancomycin Trough 16.0 01/31/24 01/31/24 02:58 02:58 WBC RBC Hgb Hct MCV MCH MCHC RDW Plt Count MPV Neutrophils % Lymphocytes % Monocytes % Eosinophils % Basophils % Neutrophils # Lymphocytes # Monocytes # Eosinophils # Basophils # Hypochromasia Anisocytosis Microcytosis Sodium 139 Potassium 3.5 Chloride 109 H Carbon Dioxide 23 Anion Gap 7 BUN 9 Creatinine 0.66 0.67 Est GFR (CKD-EPI)AfAm >90 >90 Est GFR (CKD-EPI)NonAf >90 >90 Glucose 88 Calcium 8.7 C-Reactive Protein <0.5 Vancomycin Trough
--- NOTE | 2024-01-31 09:45 | P.PN ---
Subjective Progress Note Date: 01/31/24 Principal diagnosis: Right elbow pain Septic joint of right elbow Patient seen and examined this morning. Patient is resting comfortably in bed with right elbow elevated on pillows. Surgical incision to right elbow, edges are well approximated with sutures intact. No active drainage. New dressing applied. He does report that his pain is managed on current regimen. Encourage patient to up and out of bed. Instructed patient that he may ambulate in hallways. Continue with light ROM exercises of the right elbow as tolerated. Synovial fluid and blood cultures are in preliminary status with no growth, awaiting final results. He has been afebrile, denies any chills, nausea/v omiting, or shortness of breath. Objective - Vital Signs Vital signs: Vital Signs Temp 97.4 F L 01/31/24 08:00 Pulse 58 L 01/31/24 08:00 Resp 16 01/31/24 08:00 BP 142/78 01/31/24 08:00 Pulse Ox 95 01/31/24 08:00 FiO2 Intake & Output 01/30/24 01/31/24 01/31/24 18:59 06:59 18:59 Intake Total 236 118 Balance 236 118 Intake: Oral 236 118 Other: Voiding Method Toilet # Voids 1 - Exam Inspection: Surgical incision to the right elbow, edges are well-approximated with sutures intact. Mild bruising noted of around incision site. New dressing has been applied. Sensation: Sensation is equal, symmetric, bilaterally intact throughout the upper and lower extremities Palpation: Tender to palpation over the right elbow around incision site. Range of motion: Patient does have limited range of motion to the right elbow due to pain and stiffness from surgical procedure. Patient is able to flex and extend his right wrist and fingers. Motor: 5/5 in all major motor groups in the left upper and lower extremities, 4/5 right upper extremity. Neurovascular: Radial pulse intact, 2+ bilaterally. Cap refill under 3 seconds in digits upper extremities. - Labs CBC & Chem 7: 01/31/24 02:58 01/31/24 02:58 Labs: Abnormal Lab Results - Last 24 Hours (Table) 01/31/24 01/31/24 Range/Units 02:58 02:58 Hgb 10.9 L (13.0-17.5) gm/dL Hct 34.8 L (39.0-53.0) % MCV 68.6 L (80.0-100.0) fL MCH 21.5 L (25.0-35.0) pg RDW 16.5 H (11.5-15.5) % Chloride 109 H (98-107) mmol/L Microbiology - Last 24 Hours (Table) 01/28/24 16:37 Blood Culture - Preliminary Blood 01/28/24 16:37 Blood Culture - Preliminary Blood 01/28/24 20:34 Anaerobic Culture - Preliminary Synovial Fluid 01/28/24 20:34 Anaerobic Culture - Preliminary Synovial Fluid Assessment and Plan Assessment: Post-Op day 3: Incision and drainage of right elbow Plan: -Appreciate budget consultant and team management. -Continue with IV abx therapy per ID recommendations, awaiting final cultures -Activity: Keep elbow elevated on pillows, may perform ROM exercises as tolerated. Encourage patient to be up in chair and may ambulate in hallways. -Pain control: Adequate at this time, [place] and Toradol -Meds: reviewed -GI ppx: senna -DVT PPX: Heparin -Hygiene: Maintain dressing clean and dry. -Encourage IS 10x/hr -Dispo: Clinically pending *I reviewed and discussed this case with my attending Dr. Juan, whom has reviewed this chart and films and is in agreement with assessment and plan of care as outlined above. I have personally seen and examined the patient, performed the documentation and the assessment and plan as written. Number of minutes spent on the visit: 20m.
[2024-01-31 10:19] LABS: Erythrocyte Sedimentation Rate 23 mm/Hr (0-15)
--- NOTE | 2024-01-31 15:27 | P.PN ---
Subjective Progress Note Date: 01/31/24 Interval History: 01/30--Patient seen and examined today. Denied any issues overnight. Right elbow pain is controlled. Patient had dressing change by orthopedic today. Surgical cultures showed no growth so far. Leukocytosis resolved. Hemoglobin stable. Platelet count normal. ESR trending down 2320. BMP unremarkable. CRP less than 0.5. REVIEW OF SYSTEMS: CONSTITUTIONAL: No fever, no malaise,. CARDIOVASCULAR: No chest pain, no palpitations, no syncope. PULMONARY: No shortness of breath, no cough, GASTROINTESTINAL: No diarrhea, no nausea, no vomiting, no abdominal pain. NEUROLOGICAL: No headaches, no weakness, PHYSICAL EXAMINATION: GENERAL: The patient is alert and oriented x3, not in any acute distress. Well developed, well nourished. HEENT: Pupils are round and equally reacting to light. EOMI. No scleral icterus. No conjunctival pallor. Normocephalic, atraumatic. No pharyngeal erythema. No thyromegaly. CARDIOVASCULAR: S1 and S2 present. No murmurs, rubs, or gallops. PULMONARY: Chest is clear to auscultation, no wheezing or crackles. ABDOMEN: Soft, nontender, nondistended, normoactive bowel sounds. No palpable organomegaly. MUSCULOSKELETAL: No joint swelling or deformity. Right elbow dressing intact. Peripheral pulses intact, no cyanosis. No tightness or tenderness forearm or upper arm. EXTREMITIES: No cyanosis, clubbing, or pedal edema. NEUROLOGICAL: Gross neurological examination did not reveal any focal deficits. SKIN: No rashes. Assessment and plan Right elbow olecranon bursitis: Leukocytosis: Presented with extensive right elbow and upper extremity swelling pain and tenderness, concerning for septic olecranon bursitis with secondary cellulitis. Status post orthopedic evaluation and I&D of right elbow jointsurgical cultures pending. Blood cultures negative so far. Infectious disease on boardcurrently on vancomycin and Unasyn Pain control. DVT prophylaxis: Subcutaneous heparin. Dictation was produced using [employer] dictation software. please excuse any grammatical, word or spelling errors. Objective - Vital Signs Vital signs: Vital Signs Temp 98.4 F 01/31/24 14:00 Pulse 77 01/31/24 14:00 Resp 16 01/31/24 14:00 BP 136/89 01/31/24 14:00 Pulse Ox 96 01/31/24 14:00 FiO2 Intake & Output 01/30/24 01/31/24 01/31/24 18:59 06:59 18:59 Intake Total 236 118 Balance 236 118 Intake: Oral 236 118 Other: Voiding Method Toilet # Voids 1 6 # Bowel Movements 1 - Labs CBC & Chem 7: 01/31/24 02:58 01/31/24 02:58 Labs: Abnormal Lab Results - Last 24 Hours (Table) 01/31/24 01/31/24 Range/Units 02:58 02:58 Hgb 10.9 L (13.0-17.5) gm/dL Hct 34.8 L (39.0-53.0) % MCV 68.6 L (80.0-100.0) fL MCH 21.5 L (25.0-35.0) pg RDW 16.5 H (11.5-15.5) % ESR 23 H (0-15) mm/Hr Chloride 109 H (98-107) mmol/L Microbiology - Last 24 Hours (Table) 01/28/24 16:37 Blood Culture - Preliminary Blood 01/28/24 16:37 Blood Culture - Preliminary Blood 01/28/24 20:34 Anaerobic Culture - Preliminary Synovial Fluid 01/28/24 20:34 Anaerobic Culture - Preliminary Synovial Fluid
--- NOTE | 2024-01-31 21:33 | P.PN ---
Subjective Progress Note Date: 01/31/24 Principal diagnosis: Reason for follow up his right elbow septic arthritis Patient is a 33-year-old male with no significant past medical history did have a history of bariatric surgery in 2017 patient presenting to the hospital with extensive right elbow and arm swelling with concern for olecranon bursitis in this patient who status post incision and drainage of the right elbow septic arthritis by Ortho on 01/28/2024. On today's evaluation that is 01/31/2024,the patient denies any fever or any chills, patient is breathing comfortably on room air, the patient denies chest pain shortness of breath and no significant cough, patient denies abdominal pain, no nausea vomiting or diarrhea. Patient pain to the right elbow has decreased in intensity. Patient white count normalized to 9.0, creatinine 0.67 blood and local culture still pending Objective - Vital Signs Vital signs: Vital Signs Temp 97.4 F L 01/31/24 08:00 Pulse 58 L 01/31/24 08:00 Resp 16 01/31/24 08:00 BP 142/78 01/31/24 08:00 Pulse Ox 95 01/31/24 08:00 FiO2 Intake & Output 01/30/24 01/31/24 01/31/24 18:59 06:59 18:59 Intake Total 236 118 Balance 236 118 Intake: Oral 236 118 Other: Voiding Method Toilet # Voids 1 - Exam GENERAL DESCRIPTION: Middle-age male lying in bed in no distress RESPIRATORY SYSTEM: Unlabored breathing , decreased breath sounds at bases HEART: S1 S2 regular rate and rhythm , ABDOMEN: Soft , no tenderness EXTREMITIES: Right elbow is currently dressed - Labs CBC & Chem 7: 01/31/24 02:58 01/31/24 02:58 Labs: Abnormal Lab Results - Last 24 Hours (Table) 01/31/24 01/31/24 Range/Units 02:58 02:58 Hgb 10.9 L (13.0-17.5) gm/dL Hct 34.8 L (39.0-53.0) % MCV 68.6 L (80.0-100.0) fL MCH 21.5 L (25.0-35.0) pg RDW 16.5 H (11.5-15.5) % Chloride 109 H (98-107) mmol/L Microbiology - Last 24 Hours (Table) 01/28/24 16:37 Blood Culture - Preliminary Blood 01/28/24 16:37 Blood Culture - Preliminary Blood 01/28/24 20:34 Anaerobic Culture - Preliminary Synovial Fluid 01/28/24 20:34 Anaerobic Culture - Preliminary Synovial Fluid Assessment and Plan (1) Leukocytosis Current Visit: Yes Status: Acute Code(s): D72.829 - ELEVATED WHITE BLOOD CELL COUNT, UNSPECIFIED SNOMED Code(s): 451355330 (2) Septic joint of right elbow Current Visit: Yes Status: Acute Code(s): M00.9 - PYOGENIC ARTHRITIS, UNSPECIFIED SNOMED Code(s): 238170178 Plan: 1patient presented to hospital with extensive right elbow as well as upper extremity swelling pain and tenderness concerning for likely septic olecranon bursitis with secondary cellulitis of the upper extremity likely from gram- positive skin annmarie gram-negative infection less likely but not entirely exclud ed 2-patient is s/p Ortho evaluation and did have I&D of the right elbow joint with cultures currently pending 3-patient to continue with vancomycin pharmacy to dose along with Unasyn to 3 g every 6 hours while waiting for the culture to finalize to determine discharge antibiotics will get a PICC line for tomorrow morning 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 please excuse any grammatical, word or spelling errors. Time with Patient: Less than 30
[2024-02-01 08:01] LABS: Prothrombin Time 11.3 sec (10.0-12.5)
[2024-02-01 08:10] LABS: African American GFR (CKD) >90 (>60 ml/min/1.73 sqM); Non-African American GFR(CKD) >90 (>60 ml/min/1.73 sqM)
[2024-02-01] MEDS: VANCOMYCIN TROUGH DUE 1 EACH MISC MISCELLANE ONE (09:04)
--- NOTE | 2024-02-01 09:25 | P.PN ---
Subjective Progress Note Date: 02/01/24 Principal diagnosis: Right elbow pain Septic joint of right elbow Patient seen and examined this morning. Patient is resting comfortably in bed. He does report some discomfort to his left elbow, although it is managed on current regimen. Discussed with patient that we are still waiting for results of cultures. Continue to encourage patient to perform light range of motion exercises of the left elbow. No further recommendations at this time. Patient is cleared from orthopedic standpoint for discharge when medically stable. Objective - Vital Signs Vital signs: Vital Signs Temp 98.3 F 02/01/24 08:00 Pulse 71 02/01/24 08:00 Resp 16 02/01/24 08:00 BP 128/87 02/01/24 08:00 Pulse Ox 98 02/01/24 08:00 FiO2 Intake & Output 01/31/24 02/01/24 02/01/24 18:59 06:59 18:59 Intake Total 236 Balance 236 Intake: Oral 236 Other: # Voids 6 2 # Bowel Movements 1 - Exam Inspection: Surgical incision to the right elbow, dressing is CDI. Sensation: Sensation is equal, symmetric, bilaterally intact throughout the upper and lower extremities Palpation: Tender to palpation over the right elbow around incision site. Range of motion: Patient does have limited range of motion to the right elbow due to pain and stiffness from surgical procedure. Patient is able to flex and extend his right wrist and fingers. Motor: 5/5 in all major motor groups in the left upper and lower extremities, 4/5 right upper extremity. Neurovascular: Radial pulse intact, 2+ bilaterally. Cap refill under 3 seconds in digits upper extremities. - Labs CBC & Chem 7: 01/31/24 02:58 02/01/24 07:18 Labs: Abnormal Lab Results - Last 24 Hours (Table) 01/31/24 Range/Units 02:58 ESR 23 H (0-15) mm/Hr Microbiology - Last 24 Hours (Table) 01/28/24 16:37 Blood Culture - Preliminary Blood 01/28/24 16:37 Blood Culture - Preliminary Blood Assessment and Plan Assessment: Post-Op day 4: Incision and drainage of right elbow Plan: -Appreciate quality assurance consultant and team management. -Continue with IV abx therapy per ID recommendations, awaiting final cultures -Activity: Keep elbow elevated on pillows, may perform ROM exercises as tolerated. Encourage patient to be up in chair and may ambulate in hallways. -Pain control: Adequate at this time, [place] and Toradol -Meds: reviewed -GI ppx: senna -DVT PPX: Heparin -Hygiene: Maintain dressing clean and dry. -Encourage IS 10x/hr -Dispo: Patient is cleared from orthopedic standpoint for discharge when medically stable. No further recommendations at this time. Discharge instructions will be placed in chart. *I reviewed and discussed this case with my attending Dr. Juan, whom has r eviewed this chart and films and is in agreement with assessment and plan of care as outlined above. I have personally seen and examined the patient, performed the documentation and the assessment and plan as written. Number of minutes spent on the visit: 20m.
--- NOTE | 2024-02-01 11:40 | P.DS ---
Providers Date of admission: 01/28/24 16:28 Expected date of discharge: 02/01/24 Attending physician: Phillip Bacon MD Consults: 01/28/24 16:09 Consult Physician Urgent Consulting Provider: Carlos Juan Consult Reason/Comments: Elbow pain, rule out septic joint Do you want consulting provider notified?: Yes 01/28/24 16:10 Consult Physician Urgent Consulting Provider: Kianna Mathews Consult Reason/Comments: Septic joint Do you want consulting provider notified?: Yes Primary care physician: Viki Bosch [place] [facility] Course: Final Diagnosis: Septic arthritis of R elbow, status post I&D, maintained on Unasyn and vancomycin as per ID .cultures finalizing. Cleared by orthopedic surgery for discharge. Leukocytosis secondary to the above, resolved. Morbid obesity, BMI 40, history of gastric sleeve 2016 Patient will be discharged home today in a stable condition with guarded prognosis pending finalization of cultures, PICC line placement, antibiotics and clearance as per ID. Patient denies pain. Denies chills. Afebrile, normal WBC. Creatinine 0.68. Microbiology 01/28/24 16:37 Blood Blood Culture - Preliminary 01/28/24 16:37 Blood Blood Culture - Preliminary 01/28/24 20:34 Synovial Fluid Anaerobic Culture - Preliminary 01/28/24 20:34 Synovial Fluid Anaerobic Culture - Preliminary The impression and plan of care has been dictated as directed. : I performed a history and examination of this patient, discussed the same with the dictator. I agree with the dictator's note ,documented as a scribe. Any additional findings or plans will be noted. Patient Condition at Discharge: Stable Plan - Discharge Summary Discharge Rx Participant: No New Discharge Prescriptions: New Acetaminophen Tab [Tylenol] 650 mg PO Q6HR PRN tab PRN Reason: Mild Pain Or Fever > 100.5 Discharge Medication List Acetaminophen Tab [Tylenol] 650 mg PO Q6HR PRN tab 02/01/24 [Rx] Follow up Appointment(s)/Referral(s): Carlos Juan DO [Doctor of Osteopathic Medicine] - 10 Days Phillip Bacon MD [STAFF PHYSICIAN] - 1 Week Activity/Diet/Wound Care/Special Instructions: Activity: Continue to perform ROM exercises as tolerated. Pain management: Take medications as prescribe. Ice and elevate as needed. Hygiene: May shower, allow soapy water to run over incision and pat dry. May leave open to air if no drainage. Follow-up: Patient to follow up with Dr. Juan's office in 10 days for removal of sutures. Please feel free to contact our office for any questions or concerns [phone]
--- NOTE | 2024-02-01 22:59 | P.PN ---
Subjective Progress Note Date: 02/01/24 Principal diagnosis: Reason for follow up his right elbow septic arthritis Patient is a 33-year-old male with no significant past medical history did have a history of bariatric surgery in 2017 patient presenting to the hospital with extensive right elbow and arm swelling with concern for olecranon bursitis in this patient who status post incision and drainage of the right elbow septic arthritis by Ortho on 01/28/2024. On today's evaluation that is 02/01/2024,the patient remains to be afebrile, patient is on room air not requiring supplemental oxygen and denies any shortness of breath no chest pain or cough.Patient denies having any nausea or vomiting, no abdominal pain and no diarrhea and pain to the right elbow has decreased in intensity. Patient white count is normalized creatinine 0.68 culture has been negative for Objective - Vital Signs Vital signs: Vital Signs Temp 98.3 F 02/01/24 08:00 Pulse 71 02/01/24 08:00 Resp 16 02/01/24 08:00 BP 128/87 02/01/24 08:00 Pulse Ox 98 02/01/24 08:00 FiO2 Intake & Output 01/31/24 02/01/24 02/01/24 18:59 06:59 18:59 Intake Total 236 250 Balance 236 250 Intake: Oral 236 250 Other: Voiding Method Toilet # Voids 6 2 # Bowel Movements 1 - Exam GENERAL DESCRIPTION: Middle-age male lying in bed in no distress RESPIRATORY SYSTEM: Unlabored breathing , decreased breath sounds at bases HEART: S1 S2 regular rate and rhythm , ABDOMEN: Soft , no tenderness EXTREMITIES: Right elbow is currently dressed - Labs CBC & Chem 7: 01/31/24 02:58 02/01/24 07:18 Labs: Microbiology - Last 24 Hours (Table) 01/28/24 16:37 Blood Culture - Preliminary Blood 01/28/24 16:37 Blood Culture - Preliminary Blood Assessment and Plan (1) Leukocytosis Current Visit: Yes Status: Acute Code(s): D72.829 - ELEVATED WHITE BLOOD CELL COUNT, UNSPECIFIED SNOMED Code(s): 102635917 (2) Septic joint of right elbow Current Visit: Yes Status: Acute Code(s): M00.9 - PYOGENIC ARTHRITIS, UNSPECIFIED SNOMED Code(s): 813717883 Plan: 1patient presented to hospital with extensive right elbow as well as upper extremity swelling pain and tenderness concerning for likely septic olecranon bursitis with secondary cellulitis of the upper extremity likely from gram- positive skin annmarie gram-negative infection less likely but not entirely excluded 2-patient is s/p Ortho evaluation and did have I&D of the right elbow joint with cultures so far negative 3-with a culture negative for any resistant pathogen we will discontinue Unasyn and vancomycin start the patient Rocephin 2 g daily plan is for 4 weeks of antibiotics prescription provided to the family service caseworker currently waiting for PICC line placement Dictation was produced using [employer] dictation software. please excuse any grammatical, word or spelling errors. Time with Patient: Less than 30
[2024-02-02 02:42] VITALS: RESP 16
[2024-02-02 04:23] LABS: African American GFR (CKD) >90 (>60 ml/min/1.73 sqM); Non-African American GFR(CKD) >90 (>60 ml/min/1.73 sqM)
[2024-02-02] MEDS: LORazepam 2 MG/ML INJ IV ONE (07:18)
[2024-02-02] MEDS: LORazepam 2 MG/ML INJ IV STA (07:19)
[2024-02-02 07:23] VITALS: BP 122/81; PULSE 50; TEMP 97.7
--- NOTE | 2024-02-04 06:52 | P.DS ---
Providers Date of admission: 01/28/24 16:28 Expected date of discharge: 02/02/24 Attending physician: Phillip Bacon MD Consults: 01/28/24 16:09 Consult Physician Urgent Consulting Provider: Carlos Juan Consult Reason/Comments: Elbow pain, rule out septic joint Do you want consulting provider notified?: Yes 01/28/24 16:10 Consult Physician Urgent Consulting Provider: Kianna Mathews Consult Reason/Comments: Septic joint Do you want consulting provider notified?: Yes Primary care physician: Viki Bosch Hospital Course: Final diagnosis Septic arthritis of R elbow, status post I&D, maintained on Unasyn and vancomycin as per ID .cultures finalizing. Cleared by orthopedic surgery for discharge. Leukocytosis secondary to the above, resolved. Morbid obesity, BMI 40, history of gastric sleeve 2017 GI prophylaxis DVT prophylaxis Full code Discharge disposition Patient is being discharged in a stable condition with guarded prognosis to home with home care. Patient will follow-up with Dr. Bacon in the outpatient setting upon discharge. Patient is to continue with PICC line and IV antibiotics with close outpatient follow-up with infectious disease as scheduled. Total time taken is greater than 35 minutes. Hospital course This is a 33-year-old male who was recently admitted with septic arthritis of the right elbow status post I&D with orthopedics. Patient will continue on IV antibiotics per ID recommendations and has received a PICC line. Patient was scheduled to be discharged yesterday although did not receive PICC until this morning. Patient is medically stable and has been cleared by consultations. Please refer to consultation notes for further HPI. Currently no reports of chest pain, shortness of breath, or palpitations. Patient is afebrile. No reports of nausea or vomiting and patient is tolerating diet. Patient will be discharged home today. Physical exam: Gen: This is a 33-year-old male who is awake, alert and oriented x 3, well- developed, well-nourished, obese HEENT: Head is atraumatic, normocephalic. Pupils equal, round. Sclerae is anicteric. NECK: Supple. No JVD. No lymphadenopathy. No thyromegaly. LUNGS: Clear to auscultation. No wheezes or rhonchi. No intercostal retractions. HEART: Regular rate and rhythm. No murmur. ABDOMEN: Soft. Obese. Bowel sounds are present. No masses. No tenderness. EXTREMITIES: No pedal edema. No calf tenderness. Right elbow swelling has improved NEUROLOGICAL: Patient is awake, alert and oriented x3. Cranial nerves 2 through 12 are grossly intact. Please refer to medication reconciliation sheet for a list of medications. The impression and plan of care has been dictated by Mariposa Cortes, Nurse Practitioner as directed. Dr. Kathia MD I have performed a history and examination and MDM of this patient, discussed the same with the dictator, and agree with the dictator's assessment and plan as written ,documented as a scribe. Based on total visit time, I have performed more than 50% of the visit. Patient Condition at Discharge: Stable Plan - Discharge Summary Discharge Rx Participant: No New Discharge Prescriptions: New Acetaminophen Tab [Tylenol] 650 mg PO Q6HR PRN tab PRN Reason: Mild Pain Or Fever > 100.5 cefTRIAXone [Rocephin] 2,000 mg IVP Q24HR #28 each Discharge Medication List Acetaminophen Tab [Tylenol] 650 mg PO Q6HR PRN tab 02/01/24 [Rx] cefTRIAXone [Rocephin] 2,000 mg IVP Q24HR #28 each 02/01/24 [Rx] Follow up Appointment(s)/Referral(s): [facility], [NON-STAFF] - 1 Week ([facility] will call you to arrange a visit) Phillip Bacon MD [STAFF PHYSICIAN] - 1 Week [facility],Infusion [NON-STAFF] - 02/29/24 1:45 pm ([facility] infusion will be your infusion provider) Carlos Juan DO [Doctor of Osteopathic Medicine] - 10 Days (please call for an appointment ) Kianna Mathews MD [STAFF PHYSICIAN] - 1 Week Patient Instructions/Handouts: Irrigation Solution (Wash or rinse), Wound Infection (GEN), Joint Incision and Drainage (DC) Activity/Diet/Wound Care/Special Instructions: Activity: Continue to perform ROM exercises as tolerated. Pain management: Take medications as prescribe. Ice and elevate as needed. Hygiene: May shower, allow soapy water to run over incision and pat dry. May leave open to air if no drainage. Follow-up: Patient to follow up with Dr. Goodmanson's office in 10 days for removal of sutures. Please feel free to contact our office for any questions or concerns [phone] Discharge Disposition: HOME SELF-CARE
== END 2024-02-02 11:11 | disposition home or self-care (01) | DRG 507 ==
LOC: EC 14:18 → 6NMEDSUR 16:27 → OBSVTOIN 16:28 → 6NMEDSUR 16:53
PROVIDERS: ADMIT Family Medicine; ATTEND Family Medicine
PROC: 0R9L0ZZ Drainage of Right Elbow Joint, Open Approach (ICD-10-PCS; principal; 2024-01-28 19:30)
PROC: 02HV33Z Insertion of Infusion Device into Superior Vena Cava, Percutaneous Approach (ICD-10-PCS; 2024-02-02)
DX: M00.9 Pyogenic arthritis, unspecified (principal); Z68.41 Body mass index [BMI] 40.0-44.9, adult; E66.01 Morbid (severe) obesity due to excess calories; M70.21 Olecranon bursitis, right elbow; Z98.84 Bariatric surgery status
CPT/HCPCS: 36415; 36573; 80048; 80053; 80202; 82565; 84550; 85025; 85610; 85652; 86140; 87040; 87070; 87075; 87102; 87116; 87205; 87206; 88108; 88305; 96365; 96375; 99285

== ENCOUNTER 2024-02-15 11:35 | Emergency (ER) | payer BC ==
--- NOTE | 2024-03-23 13:13 | XR ---
Patient Orestes Ramos ID [id number] Order # EXAMINATION TYPE: XR chest 2V DATE OF EXAM: 02/28/2024 COMPARISON: No comparison available on downtime PACS. INDICATION: PICC line placement TECHNIQUE: Frontal and lateral views of the chest are obtained. FINDINGS: The heart size is normal. The pulmonary vasculature is normal. The lungs are clear. Enters on the left with the tip in the distal superior vena cava region. IMPRESSION: 1. No acute pulmonary process. 2. PICC line tip at the distal superior vena cava right atrial junction.
== END 2024-02-15 13:30 | disposition home or self-care (01) ==
LOC: EC 11:35
DX: T82.594A Other mechanical complication of infusion catheter, initial encounter (principal)
CPT/HCPCS: 71046; 99283

== ENCOUNTER → 2024-02-16 | Outpatient (CLI) | payer BC | END | disposition home or self-care (01) | LOC: LABPRL 09:15 | PROVIDERS: ATTEND Internal Medicine Infectious Disease | DX: M00.9 Pyogenic arthritis, unspecified (principal) | CPT/HCPCS: 80053; 85025; 85652; 86140 ==